=== PATIENT | male | born 1995 | race Hispanic/Latino ===

== ENCOUNTER → 2023-04-03 17:03 | Outpatient (CLI) | payer OTHER, SELFPAY ==
--- NOTE | 2023-04-03 17:07 | DI.MRI.S_ITS ---
PROCEDURE: MR FEMUR LT WO CON INDICATIONS: leg pain TECHNIQUE: Noncontrast coronal and sagittal T1 spin echo and STIR; axial T1 spin echo and T2 fast spin echo with fat saturation through the left thigh. COMPARISON: None. FINDINGS: Image quality: Excellent. Bones: The visualized bone marrow demonstrates normal signal on all sequences. The overlying cortex appears intact. No fractures lines or intra-osseous lesions. Soft tissues: There is extensive edema throughout medial portion of biceps femorals muscle with oval fairly homogeneously T2 hyperintense and T1 hypointense area within the medial portion of biceps femorals muscle long head and measures up to 2.5 x 1.4 x 11.7 cm in size suggestive of intramuscular hematoma. No other muscle or tendon signal abnormality is seen. No soft tissue mass or drainable fluid collection. IMPRESSION: 1. Finding is suggestive of low to moderate grade strain/partial-thickness tear involving long head of biceps femorals muscle with 2.5 x 1.4 x 11.7 cm intramuscular hematoma involving medial portion of biceps muscle in proximal to mid thigh. 2. No other muscle or tendon signal abnormalities. 3. No marrow edema. No fracture or dislocation. Dictated by: Dwayne Marroquin M.D. on 04/04/2023 at 15:45 Approved by: Dwayne Marroquin M.D. on 04/04/2023 at 16:30
== END ==
DX: S76.302A Unspecified injury of muscle, fascia and tendon of the posterior muscle group at thigh level, left thigh, initial encounter (principal); X58.XXXA Exposure to other specified factors, initial encounter
CPT/HCPCS: 73718

== ENCOUNTER 2024-08-09 13:51 | Emergency (ER) | payer OTHER, SELFPAY ==
[2024-08-09 14:09] VITALS: BP 153/90; PULSE 73; RESP 18; TEMP 36.8; O2SAT 98; BMI 23.0
--- NOTE | 2024-08-09 14:09 | DI.RAD.S_ITS ---
PROCEDURE: XR FINGER RT MIN 2V INDICATIONS: injury TECHNIQUE: AP hand, 2 views of the 3rd finger(s) acquired. COMPARISON: None. FINDINGS: Bones: Comminuted fracture extending into the articular surface of the distal interphalangeal joint with mild foreshortening of the 3rd distal phalanx. No suspicious bony lesions. Soft tissues: No suspicious soft tissue calcifications. IMPRESSION: Comminuted distal 3rd tuft fracture Dictated by: Cezar Lundberg M.D. on 08/09/2024 at 14:38 Approved by: Cezar Lundberg M.D. on 08/09/2024 at 14:39
--- NOTE | 2024-08-09 14:22 | PC.NURSE ---
Addendum entered by Shea Keane R.N. 08/09/24 14:24: pt arrives withbandaid on finger Original Note: reports he was playing baseball when ball hit hand and hurt his right middle finger
--- NOTE | 2024-08-09 14:26 | ED_ITS ---
HPI - Extremity Injury (Upper) General Chief Complaint: Extremity Injury, Upper Stated Complaint: fracture of finger possible Time Seen by Provider: 08/09/24 14:20 Source: patient Mode of arrival: Ambulatory History of Present Illness HPI narrative: Patient here with , complains of right middle finger injury. Patient was playing softball last night and the ball hit his finger tip. Does have subungual hematoma to it. Denies any other injuries. Patient is right-handed. Review of Systems Review of Systems Narrative: GENERAL: Negative chills, fatigue, malaise, fever, sweats. HEENT: Negative sinus pain, ear pain, sore throat RESPIRATORY: Negative dyspnea, cough CARDIOVASCULAR: Negative chest pain, palpitations GASTROINTESTINAL: Negative vomiting, nausea, abdominal pain : Negative dysuria, frequency, hematuria MUSCULOSKELETAL: Positive muscle or bony pain SKIN: Negative rash, skin lesions NEUROLOGIC: Negative weakness, numbness ROS Unobtainable: All systems reviewed & are unremarkable except as noted in HPI and below Patient History Social History (System 08/11/24 @ 07:03 by Estelle Vicente) Smoking Status: Current every day smoker Smoking Status: Current every day smoker tobacco type: vaping Exam Narrative Exam Narrative: GENERAL: in no distress, not toxic not dyspneic HEAD: Normocephalic. EYES: Pupils equal round EXTREMITIES: No gross deformities. Examination of right middle finger. There is subungual hematoma to the fingernail. Fingernail otherwise intact at this time. There is bruising at the tip of the finger/essentially distal phalanx surface. Limited range of motion at the DIP joint due to pain. Nontender PIP joint and MCP joint. Light touch intact to fingertip. No necrotic tissue. NEURO: AOx4. Clear speech SKIN: Warm and dry PSYCH: Not anxious, is cooperative Initial Vital Signs Initial Vital Signs: Vital Signs Temperature 98.2 F 08/09/24 14:09 Pulse Rate 73 08/09/24 14:09 Respiratory Rate 18 08/09/24 14:09 Blood Pressure 153/90 H 08/09/24 14:09 Pulse Oximetry 98 08/09/24 14:09 Oxygen Delivery Method Room Air 08/09/24 14:09 Procedures Orthopedic Splinting/Casting Injury #1: Time of procedure: 14:47 Side: right Upper Extremity Injury Location: finger Upper Extremity Immobilizer: aluminum form splint Post splinting neuro exam: intact and no change Post splinting vascular exam: no change Placed by: Nursing Course Orders Ordered: Discontinued Medications Bacitracin (Bacitracin Oint 0.9 Gm Pckt) 1 applic TOP NOW ONE Stop: 08/09/24 14:26 Last Admin: 08/09/24 14:41 Dose: 1 applic Documented By: SARMAD Ibuprofen (Ibuprofen 400 Mg Tablet) 800 mg PO NOW ONE Stop: 08/09/24 14:26 Last Admin: 08/09/24 14:41 Dose: 800 mg Documented By: SARMAD Vital Signs Vital signs: Vital Signs - 8 hr 08/09/24 14:09 Temperature 98.2 F Pulse Rate 73 Respiratory Rate 18 Blood Pressure 153/90 H Pulse Oximetry 98 Oxygen Delivery Method Room Air MDM - Extremity Injury (Upper) Imaging Data Extremity x-ray #1: Radiologist's Impression: [address] [address] XRay Report Signed Patient: Cezar Hernandez MR#: [id number] : 1995 Acct:[id number] Age/Sex: 28 / M Date of Service: 08/09/24 Loc: ED Accession Number: [id number] Procedure: XR finger RT min 2V Ordering Provider: Cezar Francois MD PROCEDURE: XR FINGER RT MIN 2V INDICATIONS: injury TECHNIQUE: AP hand, 2 views of the 3rd finger(s) acquired. COMPARISON: None. FINDINGS: Bones: Comminuted fracture extending into the articular surface of the distal interphalangeal joint with mild foreshortening of the 3rd distal phalanx. No suspicious bony lesions. Soft tissues: No suspicious soft tissue calcifications. IMPRESSION: Comminuted distal 3rd tuft fracture Dictated by: Cezar Lundberg M.D. on 08/09/2024 at 14:38 Approved by: Cezar Lundberg M.D. on 08/09/2024 at 14:39 [facility] Narrative Medical decision making narrative: Patient here with , complains of right middle finger injury. Patient was playing softball last night and the ball hit his finger tip. Does have subungual hematoma to it. Denies any other injuries. Patient is right-handed. After history and exam, x-ray right middle finger ibuprofen ice pack splint [facility] Medical records reviewed: No recent visit for this complaint Differential considered: Includes but not limited to finger fracture finger contusion, subungual hematoma Imaging studies independently reviewed: X-ray right finger comminuted distal 3rd tuft fracture Consultations: None indicated this time. Re-evaluations: Reviewed results with patient. Pain is controlled. Referral for follow up provided. Nontoxic at discharge. He desires discharge home. Discussion: Appropriate for discharge home exam is reassuring. Finger otherwise neurovascularly intact. Nontoxic at discharge. Pain controlled. Referral for Orthopedics provided. He desires discharge home. Diagnosis: Finger fracture Discharge Plan Departure Patient Disposition: Home Clinical Impression: Finger fracture, right Qualifiers: Encounter type: initial encounter Finger: middle finger Fracture type: closed Phalanx: distal Fracture alignment: displaced Qualified Code(s): S62.632A - Displaced fracture of distal phalanx of right middle finger, initial encounter for closed fracture Instructions: DI for Finger Fracture Activity Restrictions/Additional Instructions: X-ray does show that you have a broken finger at the tip. Please use provided finger splint until office appointment time with Orthopedics. Continue ibuprofen for pain. Use provided ice pack 20 minutes at a time as needed for pain and swelling. Keep your finger elevated to reduce swelling. There is a chance you may may lose the fingernail due to the injury. Please call provided orthopedic office on Sunday for follow up appointment. Return if worse if any questions or concerns. Please change finger dressing daily with warm soap and water and apply a thin layer of topical antibiotic. Referrals: Manjit Rdz MD [Physician] - Stand Alone Forms: Patient Portal/API/Survey
[2024-08-09] MEDS: IBUPROFEN 400 MG TABLET 800 MG PO (14:41)
[2024-08-09] MEDS: BACITRACIN OINT 0.9 GM PCKT 1 APPLIC TOP (14:41)
== END 2024-08-09 15:35 | disposition home or self-care (01) ==
PROVIDERS: Emergency Provider Emergency Medicine
DX: S62.632A Displaced fracture of distal phalanx of right middle finger, initial encounter for closed fracture (principal); W21.03XA Struck by baseball, initial encounter
CPT/HCPCS: 29130; 73140; 99283

== ENCOUNTER 2024-11-23 19:24 | Emergency (ER) | payer OTHER, SELFPAY ==
[2024-11-23 20:44] VITALS: BP 130/72; PULSE 87; RESP 16; TEMP 37.4; O2SAT 99; BMI 23.8
[2024-11-24 02:18] VITALS: BP 133/85; PULSE 90; RESP 16; O2SAT 99
--- NOTE | 2024-11-24 02:30 | ED_ITS ---
HPI - Abdominal Pain General Chief Complaint: Abdominal Pain Stated Complaint: lower abd pain, Testicle pain Time Seen by Provider: 11/24/24 02:19 Source: patient Mode of arrival: Ambulatory History of Present Illness HPI narrative: 29-year-old male with right testicular discomfort and right lower quadrant discomfort since Sunday 3:00 p.m. 1-1/2 days ago, no injury recalled. No dysuria or frequency of urination. No history of kidney stones. Prior remote appendicitis. No fevers or chills. No local injury recalled. Related Data Previous Rx's ?Medication ?Instructions ?Recorded doxycycline hyclate 100 mg tablet 100 mg PO BID #20 ta bs 11/24/24 Allergies Allergy/AdvReac Type Severity Reaction Status Date / Time No Known Drug Allergies Allergy Verified 11/23/24 20:44 Patient History tobacco type: vaping Exam Narrative Exam Narrative: GENERAL: Well-developed patient, in mild distress. HEAD: Atraumatic. Normocephalic. EYES: Pupils equal round and reactive. Extraocular motions intact. No scleral icterus. No injection or drainage. ENT: Nose without bleeding, purulent drainage. Throat without erythema, tonsillar hypertrophy or exudate. Airway patent. NECK: Trachea midline. Non tender CARDIOVASCULAR: Regular rate and rhythm without murmurs, gallops, or rubs. RESPIRATORY: Clear to auscultation. Breath sounds equal bilaterally. No wheezes, rales, or rhonchi. GASTROINTESTINAL: Abdomen soft, non-tender, nondistended. : Circumcised male genitalia without obvious lesions to lazaro/shaft. Some tenderness to right epididymal region on examination and nonenlarged testis, normal testicular lie. EXTREMITIES: No edema or joint tenderness. BACK: Nontender without deformity or crepitance. No flank tenderness. NEURO: AOx3. Motor functions grossly nonfocal. SKIN: No rash or erythema of visible areas Initial Vital Signs Initial Vital Signs: Vital Signs Temperature 99.4 F 11/23/24 20:44 Pulse Rate 87 11/23/24 20:44 Respiratory Rate 16 11/23/24 20:44 Blood Pressure 130/72 11/23/24 20:44 Pulse Oximetry 99 11/23/24 20:44 Oxygen Delivery Method Room Air 11/23/24 20:44 Course Orders Ordered: Discontinued Medications Hydrocodone Bitart/Acetaminophen (Hydrocodone/Acet 5/325 Prepack) 1 bottle MISC DIRECTED ONE Stop: 11/24/24 04:06 Last Admin: 11/24/24 05:22 Dose: 1 bottle Documented By: Doxycycline Hyclate (Doxycycline Hyclate 100 Mg Tablet) 100 mg PO NOW ONE Stop: 11/24/24 03:40 Last Admin: 11/24/24 04:21 Dose: Not Given Documented By: Doxycycline Hyclate (Doxycycline Hyclate 100 Mg Tablet) 100 mg PO NOW ONE Stop: 11/24/24 04:03 Last Admin: 11/24/24 04:27 Dose: 100 mg Documented By: Ketorolac Tromethamine (Ketorolac 30 Mg/Ml Vial) 15 mg IV NOW ONE Stop: 11/24/24 02:37 Last Admin: 11/24/24 02:50 Dose: 15 mg Documented By: Ondansetron HCl (Ondansetron 4 Mg/2 Ml Inj) 4 mg IV NOW ONE Stop: 11/24/24 02:38 Last Admin: 11/24/24 02:50 Dose: 4 mg Documented By: Vital Signs Vital signs: Vital Signs - 8 hr 11/24/24 02:18 Pulse Rate 90 Respiratory Rate 16 Blood Pressure 133/85 Pulse Oximetry 99 Oxygen Delivery Method Room Air MDM - Abdominal Pain Lab Data Attestation: I reviewed the patient's lab results. Lab results narrative: White blood cell count 9300, hemoglobin 14.1, platelets adequate. Urinalysis negative. 11/24/24 02:40 Labs: Lab Results 11/23/24 11/24/24 Range/Units 21:50 02:40 WBC 9.3 (4.5-11.0) X10^3/uL RBC 4.77 (4.5-5.9) X10^6/uL Hgb 14.1 (13.5-17.5) g/dL Hct 40.6 L (41-53) % MCV 85.1 (80-100) fL MCH 29.5 (26-34) PG MCHC 34.6 (30-36) % RDW 14.0 (11.6-14.8) % Plt Count 221 (150-400) X10^3/uL Neut % (Auto) 78.4 H (50-75) % Lymph % (Auto) 12.9 L (25-40) % [place] % (Auto) 7.7 (3-14) % Eos % (Auto) 0.6 L (2-4) % Baso % (Auto) 0.4 (0-2) % Neut # (Auto) 7300 H (0780-5021) /uL Lymph # (Auto) 1200 (1156-7332) /uL [place] # (Auto) 700 (0-900) /uL Eos # (Auto) 100 (0-450) /uL Baso # (Auto) 0 (0-100) /uL Lipase 67 (23-300) U/L Urine RBC 1-5/hpf (0-5/HPF) Urine WBC None seen (0-5/HPF) Ur Squamous Epith Cells 0-1 /hpf (0-5/HPF) Urine Bacteria None seen (None) Vol Urine Centrifuged 10ml (spun) Ur Chlamydia DNA (PCR) Not detected N gonorrhoeae DNA (PCR) Not detected Point of care testing: Urine Dip Bedside Urine Glucose Negative Bedside Urine Bilirubin - Negative Bedside Urine Ketone - Negative Urine Specific [place] 1.010 Bedside Urine Occult Blood +/- Bedside Urine pH 7.5 Bedside Urine Protein - Negative Bedside Urine Urobilinogen - Negative Bedside Urine Nitrite - Negative Bedside Urine Leukocytes - Negative Esterase MDM Narrative Medical decision making narrative: 29-year-old male with nontraumatic right scrotal discomfort since Sunday afternoon 1-1/2 days ago, no injury recalled. No fevers or chills. No prior similar symptoms. Some tenderness right epididymal region. Right lower quadrant abdomen without tenderness. Ultrasound scrotum requested. Urinalysis pending. Urine GC chlamydia requested. White blood cell count 9000 not elevated, urinalysis without obvious infection. Ultrasound scrotum ordered. Ultrasound scrotum shows inflammatory changes to the testis and the epididymis on the right side, good flow, verbal sono tech report. Oral doxycycline antibiotic, dose given in the emergency department, prescription sent to pharmacy. Home pack hydrocodone. Follow up with Urology. Discharged home. (late entry, ultrasound official read describes orchitis on that side, not epididymitis. Case discussed with Dr. Cowan, who was comfortable with this treatment plan given age less than 35 with doxycycline, no change in therapy advised at this time) Discharge Plan Departure Patient Disposition: Home Clinical Impression: Acute epididymitis Instructions: DI for Epididymitis Activity Restrictions/Additional Instructions: Right-sided nontraumatic scrotal pain, with some radiation to the right lower quadrant of the abdomen. No abdominal tenderness right lower quadrant. Some tenderness to the right testis and epididymis on examination. Ultrasound suspicious for infection inflammatory changes to the right testis and epididymis above it. Oral doxycycline antibiotic started, 1st dose given in the emergency department, prescription sent for further antibiotics with your pharmacy. Follow up with Urology advised. Call the office of Dr. Cowan later today during open hours to arrange close follow up later this week. Prescriptions: New doxycycline hyclate 100 mg tablet 100 mg PO BID Qty: 20 0RF Referrals: Vikram Cowan DO [Physician, Urology] Stand Alone Forms: Patient Portal/API, Work Release Note
--- NOTE | 2024-11-24 02:36 | DI.US.S_ITS ---
PROCEDURE: US SCROTUM INDICATIONS: R testicular pain/tenderness TECHNIQUE: Real-time scanning was performed of the scrotum and testicles, with image documentation. Color and pulse Doppler interrogation was performed of both testicles. COMPARISON: None. FINDINGS: Right: Testicle is normal in size at 5.6 x 2.5 x 3.3 cm, and heterogeneous in echotexture. No focal mass. Epididymis is normal in overall size and morphology. No hydrocele or varicoceles. Overlying scrotal skin is normal in thickness. There is hyperemia of the right testicle relative to the left. Left: Testicle is normal in size at 5.1 x 1.4 x 3.5 cm, and homogeneous in echotexture. Epididymis is normal in overall size and morphology. No focal mass. No hydrocele or varicoceles. Overlying scrotal skin is normal in thickness. Doppler: Color and pulse Doppler demonstrate normal arterial flow in the left testicle and asymmetrically increased right arterial flow in the right testicle. IMPRESSION: Findings consistent with right orchitis. No evidence for testicular torsion on either side. No significant discrepancy with the hotel night auditor radiology preliminary report. Dictated by: Jonny Reich M.D. on 11/24/2024 at 7:09 Approved by: Jonny Reich M.D. on 11/24/2024 at 7:11
[2024-11-24 02:48] LABS: Add Manual Diff / Slide Review NO; Hematocrit 40.6 % (41-53); Hemoglobin 14.1 g/dL (13.5-17.5); Lymphocytes Absolute Auto 1200 /uL (1100-4500); Mean Corpuscular HGB Conc 34.6 % (30-36); Mean Corpuscular Hemoglobin 29.5 PG (26-34); Mean Corpuscular Volume 85.1 fL (80-100); Platelet Count 221 X10^3/uL (150-400)
[2024-11-24] MEDS: KETOROLAC 30 MG/ML VIAL 15 MG IV (02:50)
[2024-11-24] MEDS: ONDANSETRON 4 MG/2 ML INJ IV (02:50)
[2024-11-24 02:58] LABS: Lipase 67 U/L (23-300)
[2024-11-24] MEDS: DOXYCYCLINE HYCLATE 100 MG TABLET PO (04:27)
[2024-11-24 04:28] LABS: Urine N gonorrhoeae NOT DETECTED
[2024-11-24 04:36] LABS: Urine Chlamydia NOT DETECTED
[2024-11-24] MEDS: HYDROCODONE/ACET 5/325 PREPACK 1 BOTTLE MISC (05:22)
[2024-11-24 05:31] VITALS: BP 119/58; PULSE 61; RESP 15; O2SAT 97
== END 2024-11-24 05:32 | disposition home or self-care (01) ==
PROVIDERS: Emergency Provider Emergency Medicine
DX: N45.1 Epididymitis (principal); R10.31 Right lower quadrant pain
CPT/HCPCS: 36415; 76870; 81003; 81015; 83690; 85025; 87086; 87491; 87591; 93976; 96374; 96375; 99284; J1885; J2405